=== PATIENT | female | born 1980 | race Caucasian/White ===

== ENCOUNTER → 2021-08-05 | Outpatient (CLI) | payer BC | LOC: EXRD 08:19 | DX: M54.50 Low back pain, unspecified (principal); M47.814 Spondylosis without myelopathy or radiculopathy, thoracic region; M47.816 Spondylosis without myelopathy or radiculopathy, lumbar region | CPT/HCPCS: 72070; 72100 ==

== ENCOUNTER → 2021-09-17 | Outpatient (CLI) | payer BC | LOC: EXRD 14:43 | DX: E04.0 Nontoxic diffuse goiter (principal) | CPT/HCPCS: 76536 ==